=== PATIENT | female | born 1960 | race Caucasian/White ===

== ENCOUNTER → 2023-10-11 | Outpatient (CLI) | payer BC, SELFPAY ==
--- NOTE | 2023-10-11 14:10 | US_ITS ---
STUDY: RENAL ULTRASOUND - COMPLETE REASON FOR EXAM: Female, 63 years old. OVERACTIVE BLADDER -- UTI TECHNIQUE: Ultrasound evaluation of the kidneys was performed with real-time and static mcgee-scale imaging. COMPARISON: None. FINDINGS: RIGHT KIDNEY: Normal location of the right kidney, which is normal in size. The right kidney measures 13.6 cm x 6.2 cm x 4.9 cm. There is a normal cortex of the right kidney. The renal cortex measures 1.7 cm. There is no right renal mass or cyst. There are no right renal calculi. There is mild hydronephrosis of the right kidney. DISTAL RIGHT URETER: There is non-visualization of the distal right ureter. There is no demonstrated right ureterovesical junction calculus. There is a visualized right ureteral jet. LEFT KIDNEY: Normal location of the left kidney, which is normal in size. The left kidney measures 12.2 cm x 5.9 cm by 5.8 cm. There is a normal cortex of the left kidney. The renal cortex measures 1.9 cm. There is no left renal mass or cyst. There are no left renal calculi. There is moderate hydronephrosis of the left kidney. DISTAL LEFT URETER: There is non-visualization of the distal left ureter. There is no demonstrated left ureterovesical junction calculus. There is a visualized left ureteral jet. BLADDER: The distended urinary bladder has a volume of 479 ml. The empty urinary bladder has a volume of 353 ml. There is a normal wall thickness of the distended urinary bladder. There is no demonstrated mass within the urinary bladder. There are no demonstrated bladder calculi. US/Kidney and Bladder IMPRESSION: Mild right hydronephrosis. Moderate left hydronephrosis. Large post void residual. Electronically Signed: Bereket Navas MD at 13:52 EST ,
== END | disposition home or self-care (01) ==
LOC: US 14:08
PROVIDERS: Referring Provider Urology; Visit Provider Urology
DX: N39.0 Urinary tract infection, site not specified (principal); N95.2 Postmenopausal atrophic vaginitis; R35.1 Nocturia; N32.81 Overactive bladder; K59.00 Constipation, unspecified
CPT/HCPCS: 76770

== ENCOUNTER → 2023-10-16 | Outpatient (CLI) | payer BC, SELFPAY ==
--- NOTE | 2023-10-16 | CYSPIN_PTH ---
PATHOLOGY RESULTS PATIENT: JORDY ANN LOC: [facility] U#:[id number] AGE/SX: 63/F ROOM: RE10/16/[address]: Dr. Nancy Huynh MD : 1960 BED: DIS: 10/16/2023 SPEC #: [id number] RECD: 10/17/23 08:49 STATUS: RAFA REMick #: [id number] ANNA: 10/16/23 00:[address]: Nancy Huynh DEPT: CYTOLOGY RECD BY: Baldo Anaya ENTERED: 10/17/23 08:50 SP TYPE: CYSPIN FL Tissues: Urine Procedures: Pap Stain (control) Special Stain Group II Cytospin Fluid HEADER OPERATION: Not noted PRE-OP DIAGNOSIS: Gross hematuria TISSUE SUBMITTED: Urine for cytology DIAGNOSIS CYTOLOGY Urine for cytology (cytospin): Negative for high-grade urothelial carcinoma (NHGUC), Emmy System Category II. Bacterial colonies. Crystalline debris. See comment. AM:rg 10/17/2023 COMMENT The specimen primarily consists of squamous epithelial cells. Clinical correlation is suggested. The Emmy System for urine cytology diagnostic categorization was used in the evaluation of this case. CYTOLOGY STUDY Slides are reviewed. CYTOLOGY GROSS Received is 40 ml of dark gold cloudy fluid labeled with the patient's name and and designated per the requisition as urine. Submitted for cytology preparation. / perla 10/17/2023 TC:5 CPT: 10972
--- OUTSIDE RECORDS SUMMARY | 2023-10-16 11:04 | XMS RPT_ITS | CCD ---
Author Name Unknown Address [facility] [address] [place] [address] Organization [facility] Care Team Providers Care Furniture Reproducer Name Role Phone TERA RYAN Primary Care Unavailable BRYNN PRUETT Admitting Unavailable BRYNN PRUETT Attending Unavailable BRYNN PRUETT Consulting Unavailpatience CHENEY, PHYSICIAN Attending Unavailable LENNOX LIM Admitting Unavailable LENNOX LIM Attending Unavailable CONNOR NETWORK PRICING CONSULTANT, TERA Consulting Yared RYAN NETWORK PRICING CONSULTANT~[id number], CONNOR HALEY Primary Care Unavailable CONNOR OLIVO, TERA Consulting Unavailable JULES OREILLY CRNA Consulting Unavail darryl AGUILA MD, ~[id number] ALBERT Morgan Admitting Yared AGUILA MD, ~[id number] ALBERT Morgan Attending Unavailable CONNOR OLIVO~[id number], CONNOR HALEY Primary Care Unavailable JULES OREILLY CRNA Consulting Tomas AGUILA MD, DR ALBERT Morgan Consulting Ana AGUILA MD, DR ALBERT Morgan Consulting Ana RYAN NETWORK PRICING CONSULTANT, TERA Consulting Unavailable CONNOR OLIVO, TERA Consulting Unavailable Allergies Allergy Classification Reported Allergen(s) Allergy Type Date of Onset Reaction(s) Facility (3 sources) Sulfonamides (Antibiotic); Translations: [SULFA (SULFONAMIDE ANTIBIOTICS)] Propensity to adverse reactions to drug (disorder) 2 [facility] Repository Problems Problem Classification Problem Date Documented Date Episodic/Chronic Diabetes mellitus without complication (1 source) Type 2 diabetes mellitus without complications; Translations: [TYPE 2 DM WITHOUT COMPLICATIONS] Onset: 10-06-2023 Chronic 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; Translations: [OTH SPEC CONGEN MALFORM INTESTINE] Onset: 10-06-2023 Chronic Other and unspecified benign neoplasm (1 source) Benign neoplasm of cecum; Translations: [BENIGN NEOPLASM OF CECUM] Onset: 10-06-2023 Episodic Other and unspecified benign neoplasm (1 source) Benign neoplasm of transverse colon; Translations: [BENIGN NEOPLASM OF TRANSVERSE COLON] Onset: 10-06-2023 Episodic Other and unspecified benign neoplasm (1 source) Benign neoplasm of colon, unspecified; Translations: [BENIGN NEOPLASM COLON UNSPECIFIED] Onset: 10-06-2023 Episodic Other screening for suspected conditions (not mental disorders or infectious disease) (3 sources) Encounter for screening for malignant neoplasm of colon; Translations: [ENC SCREEN MALIG NEOPLASM COLON] Onset: 10-03-2023 Episodic Results Test Name Value Interpretation Reference Range Facil ity Encounters Encounter Date Encounter Type Care Provider Facility Start: 10-06-2023 Encounter for preprocedural laboratory examination ~[phone] ALBERT AGUILA MD [facility] Start: 10-03-2023 End: 10-03-2023 ambulatory JULES S NOMANSHARON KRISTINE Facility:[facility] Start: 09-12-2023 ambulatory LENNOX LIM Facility: [facility] Start: 09-13-2021 End: 09-14-2021 ambulatory [facility] Start: 01-18-2018 ambulatory PHYSICIAN NO [facility] Payers Date Payer Category Payer Unknown [id number] [id number] 1960 Unknown [id number] 1960 Unknown [id number] 1960 Unknown [id number] 1959 Unknown [id number] Unknown [id number] Unknown [id number] Summary Purpose Family History No Family History Records FoundNo Family History Records FoundNo Family History Records FoundNo Family History Records Found Advance Directives No Advanced Directives Records FoundNo Advanced Directives Records FoundNo Advanced Directives Records FoundNo Advanced Directives Records Found Additional Source Comments INFORMATION SOURCE (unrecogn ized section and content) DATE CREATED AUTHOR AUTHOR'S ORGANIZ ATION 10/22/2021 [facility] DATE CREATED AUTHOR AUTHOR'S ORGANIZ ATION 10/12/2023 [facility] DATE CREATED AUTHOR AUTHOR'S ORGANIZ ATION [facility] FOR RECORDS PERTAINING TO PATIENTS WHO ARE OR HAVE BEEN ENROLLED IN A CHEMICAL DEPENDENCY/SUBSTANCEABUSE PROGRAM, SOME INFORMATION MAY BE OMITTED. This clinical summary was aggregated from multiple sources. Caution should be exercised in using it in the provision of clinical care. This summary normalizes information from multiple sources, and as a consequence, information in this document may materially change the coding, format and clinical context of patient data. In addition, data may be omitted in some cases. CLINICAL DECISIONS SHOULD BE BASED ON THE PRIMARY CLINICAL RECORDS. [facility] [employer] [facility]. provides no warranty or guarantee of the accuracy or completeness of information in this document.
[2023-10-16 12:52] LABS: Hematocrit 43.7 % (37-47); Hemoglobin 14.8 g/dL (12.0-15.0); Mean Corp Hgb Conc 33.9 g/dL (32-36); Mean Corpuscular Volume 94.4 fL (81-99); Mean Platelet Vol. 10.1 fl (6.2-12.0); Platelet Count 226 K/mm3 (150-450); RBC Distribution Width SD 41.6 fl (35.1-43.9); Red Blood Count 4.63 M/mm3 (4.2-5.4); White Blood Count 5.7 K/mm3 (4.4-11.0)
[2023-10-16 13:29] LABS: Anion Gap 4 (5-15); BUN 13 mg/dL (7-18); BUN/Creat Ratio 19.4 RATIO (10-20); Chloride 109 mmol/L (98-107); Creatinine, Serum 0.67 mg/dL (0.55-1.02); EST Glomerular Filtration Rate 95 mL/min (>60); Est Glom Filt Rate - Afr Amer 115 mL/min (>60); Glucose 104 mg/dL (74-106); Potassium 3.9 mmol/L (3.5-5.1); Sodium Level 139 mmol/L (136-145)
[2023-10-16 17:01] LABS: Cytology, Body Fluid / CSF SEE PATHOLOGY REPORT
== END | disposition home or self-care (01) ==
PROVIDERS: Referring Provider Urology; Visit Provider Urology
DX: R31.0 Gross hematuria (principal); N39.0 Urinary tract infection, site not specified; N28.81 Hypertrophy of kidney
CPT/HCPCS: 36415; 80048; 85027; 88108; 88313

== ENCOUNTER → 2023-11-06 | Outpatient (CLI) | payer BC, SELFPAY ==
--- NOTE | 2023-11-06 18:19 | CT_ITS ---
STUDY: CT ABDOMEN AND PELVIS WITH AND WITHOUT CONTRAST REASON FOR EXAM: Female, 63 years old. UTI/BLADDER MASS. Bilateral hydronephrosis. RADIATION DOSAGE (If Supplied By Facility): CTDIvol = ( 22.38 ) mGy, DLP = ( 3675.15 ) mGycm TECHNIQUE: Transaxial images were obtained from the dome of the diaphragm to the symphysis pubis without oral contrast. IV 100mL Isovue-370 was administered. Sagittal and coronal images were reconstructed. Individualized dose optimization techniques were used for this CT. COMPARISON: None. FINDINGS: The visualized lung bases are unremarkable. The visualized portions of the heart are within normal limits. Normal liver. Normal gallbladder and extrahepatic biliary system. There are multiple benign calcified granulomata of the spleen. Normal pancreas. Normal bilateral adrenal glands. Normal right kidney. Is a moderate degree of left hydronephrosis and left hydroureter down to the insertion at the left ureterovesical junction. The distal portion of the left ureter is dilated. No obstructive uropathy is seen. Normal visualized stomach. Normal small intestine. There are scattered colonic diverticula consistent with diverticulosis. The appendix is visualized and appears normal. Normal abdominal aorta. Normal inferior vena cava. Normal retroperitoneum. Normal urinary bladder. There is endometrial thickening for the patient''s age. Normal abdominal wall. Normal osseous structures. CT/CT Abd/Pelvis W/WO Contrast IMPRESSION: Moderate degree of left hydronephrosis and left hydroureter down to the ureterovesical junction on the left side. No obstructive uropathy is seen. Electronically Signed: Bereket Navas MD at 9:53 EDT ,
== END | disposition home or self-care (01) ==
LOC: CT 18:17
PROVIDERS: Visit Provider Urology
DX: N13.30 Unspecified hydronephrosis (principal); N32.89 Other specified disorders of bladder; N39.0 Urinary tract infection, site not specified
CPT/HCPCS: 74178; Q9967

== ENCOUNTER 2023-11-16 10:51 | Day surgery (SDC) | payer BC, SELFPAY ==
--- NOTE | 2023-11-16 | FLU_PTH ---
PATIENT: JORDY ANN [place] [facility] [id number] AGE/SX: 63/F ROOM: RE11/16/[address]: Dr. Nancy Huynh MD : 1960 BED: DIS: 11/16/2023 SPEC #: [id number] RECD: 11/17/23 09:29 STATUS: RAFA WOODWARD #: [id number] ANNA: 11/16/23 00:[address]: Nancy Huynh DEPT: CYTOLOGY RECD BY: Baldo Anaya Tissues: Urethra, NOS Procedures: Special Stain Group II Surgery Specimen Level IV Cytospin Fluid HEADER OPERATION: Cysto, Biopsy bladder mass, Fulg, Left Retrograde pyelogram PRE-OP DIAGNOSIS: UTI, Bladder mass, Hydronephrosis TISSUE SUBMITTED: Left ureteral washings DIAGNOSIS CYTOLOGY Left ureteral washings fluid (cytospin and cellblock): Negative for high grade urothelial carcinoma (FLGUC), Emmy System Category II. See comment. SJ/mr 11/20/23 COMMENT Cluster of benign urothelial cells are noted. Please make reference to additional specimen ([id number]) bladder biopsy. CYTOLOGY STUDY Slides are reviewed. CYTOLOGY GROSS Received is 10 ml of pinkish-yellow cloudy fluid labeled with the patient's name and and designated per the requisition as Left ureteral washings. Submitted for cytology preparation including cell block. mr 11/17/23 TC:4 CPT: 35894
--- NOTE | 2023-11-16 | BLA_PTH ---
PATIENT: JORDY ANN [place]: [facility] [place][id number] AGE/SX: 63/F ROOM: RE11/16/[address]: Dr. 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 See comment. GUTIERREZ/ 11/20/23 COMMENT Detrusor muscle is also noted in the specimen. Correlation with clinical, cystoscopic findings and appropriate follow up are necessary. MICROSCOPIC DESCRIPTION Slides are reviewed. GROSS DESCRIPTION Received in fixative is one container labeled with the patient's name and designated Bladder biopsy. The specimen consists of two irregular fragments of light garcia soft tissue that in aggregate measure 0.6 x 0.2 x 0.1 cm. The specimen is totally submitted in one cassette. GUTIERREZ/ 11/17/23 TC:3 CPT:65759
[2023-11-16 11:13] VITALS: BP 125/80; PULSE 70; RESP 16; TEMP 36.1; O2SAT 99; BMI 31.0
[2023-11-16] MEDS: Lactated Ringers 1,000 ML 15 ML IV (11:30)
[2023-11-16 11:41] LABS: Bedside Glucose 108 mg/dL (74-106)
[2023-11-16 12:29] LABS: Hemoglobin A1c 5.4 % (3.8-5.6)
[2023-11-16] MEDS: Cefazolin 2 GM in 0.9% Normal Saline (100mL Bag) 100 ML IV (12:37)
--- NOTE | 2023-11-16 13:30 | DCINST_ITS ---
Discharge Instructions Diet Discharge Diet: No restrictions Activity Discharge Activity: Return to Normal Activity Dressing / Incision Call your doctor if you observe: Fever of 101 or Higher, Inability to urinate and Inability to have a bowel movement Follow Up Care Please Follow Up With: Nancy Huynh MD When: Schedule for appointment next week. Please complete the Macrobid. Test Results: Test results from this visit will be discussed in further detail at your follow- up appointment, if applicable. Discharge Plan Admission Attending Provider: Nancy Huynh Primary Care Provider: FRAN MAHAN Discharge Orders/Prescriptions Prescriptions: New oxycodone-acetaminophen [Percocet] 5-325 mg tablet 1 tab PO Q8H PRN (Reason: pain) 3 Days Qty: 10 0RF phenazopyridine [Pyridium] 200 mg tablet 200 mg PO TID PRN PRN (Reason: Bladder Spasms) 7 Days Qty: 30 1RF Continued metformin 1,000 mg tablet 500 mg PO DAILY Ozempic 0.25 mg or 0.5 mg (2 mg/3 mL) pen injector 0.5 mg SUBCUT QWEEK Patient Comments: INJECT 0.25 mg SUBCUTANEOUSLY ONCE A WEEK ascorbic acid (vitamin C) [C-1000] 1,000 mg tablet 0.5 g PO DAILY phenazopyridine 95 mg tablet 95 mg PO DAILY Metamucil (sugar) Powder 5 tbsp PO DAILY Probiotic 10 billion cell capsule 100 mmu cells PO DAILY cephalexin 250 mg capsule 250 mg PO DAILY Patient Comments: TAKE ONE CAPSULE BY MOUTH AT BEDTIME calcium carbonate-vitamin D3 600 mg-5 mcg (200 unit) tablet 1 tab PO DAILY bupropion HCl 150 mg tablet extended release 24 hr 150 mg PO DAILY Patient Comments: TAKE ONE TABLET BY MOUTH IN THE MORNING Referrals / Follow Up: FRAN MAHAN [Other] Disposition Disposition (needs filled in before D/C Order can be placed): Home, Self Care
[2023-11-16 13:32] VITALS: BP 125/80; BP 167/90; PULSE 85; RESP 16; TEMP 37; O2SAT 94
--- NOTE | 2023-11-16 13:33 | PCM.OPRPT ---
Report of Operation Date of Procedure: 11/16/23 Pre-Operative Diagnosis: Bladder lesion, hydronephrosis Post-Operative Diagnosis: Same Surgery/Procedure Performed:: Cystoscopy with bladder biopsy and fulguration, left retrograde pyelogram, left ureteroscopy, left ureteral washings, left ureteral stent insertion Surgeon: Nancy Huynh Type of Anesthesia: General Specimen's removed: Left ureteral washings, bladder biopsy Description of Procedure: The patient is a 63-year-old female who is being evaluated for urinary tract infections and an extremely erythematous area of the posterior bladder wall was identified on cystoscopy in the office. On renal ultrasound a left hydronephrosis was identified and this was further evaluated with a CT scan finding distal ureteral narrowing on the left. She presents today for evaluation and intervention. Informed consent was obtained. The patient was taken to the operating room and placed on the operating room table. Anesthesia monitored the head, neck, airway, IV access and vital signs throughout the case. Once anesthesia was appropriately administered, the patient was prepped and draped in usual sterile fashion. The cystoscope was inserted through the urethra under direct visualization into the urinary bladder. The 1 cm lesion in the right posterior bladder wall was identified, more consistent today with an ulceration. The left ureteral orifice was identified and gently intubated with an 8 Paraguayan cone-tip catheter. Contrast was injected in retrograde fashion revealing distal narrowing and irregularity with significant ureteral dilation proximal to the narrowing which was still in the distal ureter. A 0.035 Glidewire was then passed through the orifice and seen in the renal pelvis. A semirigid ureteroscope was gently placed alongside of the Glidewire, and was able to maneuver through the narrowing with the help of a 0.025 Glidewire. Once beyond the narrowing, the ureter was very dilated as expected. There was no evidence of stone. The tissue in the narrowed area was consistent with stricture, no significant friability. Our brush biopsy is too wide for passage through the ureteroscope, so the decision was made to take washings with normal saline of this area. Approximately 10 cc of washings were sent for cytologic evaluation. At this time the ureteroscope was removed and with the use of the cystoscope, the Glidewire was backloaded and a 6 Paraguayan 24 cm JJ stent was inserted with good positioning in the renal pelvis as well as the urinary bladder. Significant amounts of contrast were seen pouring out of the ureteral stent. At this time biopsy forceps were used to sample the posterior wall ulceration. The area was then fulgurated for hemostatic control and tissue treatment. After hemostasis was obtained, the patient's bladder was emptied and the cystoscope was removed. She was awakened and taken to the recovery room in good condition. There were no complications during this procedure. Grafts/Implants Used: 6 x 24 JJ stent Complications None Admit VTE Documentation VTE Present on Admission: Yes VTE Mechan Device Prophylaxis: SCD's VTE Pharm Prophylaxis ordered?: No Reason prophylaxis not ordered:: Treatment Not Indicated
[2023-11-16 13:35] VITALS: BP 125/80; BP 159/84; PULSE 81; RESP 16; O2SAT 95
[2023-11-16 13:40] VITALS: BP 125/80; BP 160/80; PULSE 80; RESP 16; TEMP 36.4; O2SAT 95
[2023-11-16] MEDS: Ketorolac 15 MG/ML Vial IV (13:54)
[2023-11-16 14:25] VITALS: BP 125/80
[2023-11-21 12:26] LABS: Cytology, Body Fluid / CSF SEE PATHOLOGY REPORT
== END 2023-11-16 14:30 | disposition home or self-care (01) ==
LOC: SDC 10:54 → AC 10:58
PROVIDERS: Anesthesiology; Visit Provider Urology
PROC: 0TBB8ZX Excision of Bladder, Via Natural or Artificial Opening Endoscopic, Diagnostic (ICD-10-PCS; CPT 52250; principal; 2023-11-16 12:20)
DX: N30.10 Interstitial cystitis (chronic) without hematuria (principal); E11.9 Type 2 diabetes mellitus without complications; N13.30 Unspecified hydronephrosis; N95.2 Postmenopausal atrophic vaginitis; R35.1 Nocturia; N32.81 Overactive bladder; Z79.899 Other long term (current) drug therapy; Z79.84 Long term (current) use of oral hypoglycemic drugs; Z87.891 Personal history of nicotine dependence
CPT/HCPCS: 52354; 52332; 52224; 00910; 76000; 82962; 83036; 88108; 88305; 88313; J7120; J2405

== ENCOUNTER → 2023-11-23 | Outpatient (CLI) | payer BC, SELFPAY ==
--- NOTE | 2023-11-23 18:59 | US_ITS ---
EXAM: US RETROPERITONEAL LIMITED, RENAL CLINICAL INDICATION: LT HYDRO TECHNIQUE: Limited grayscale and color Doppler sonographic evaluation of the retroperitoneum was performed. COMPARISON: Fluoroscopic images with left stent placement November 16, 2023, ultrasound October 11, 2023 showing prominently distended urinary bladder, 479 cc calculated volume, large postvoid bladder residual 353 cc, bilateral ureteral jets. 3.2 cm tubular dilated structure in the left adnexa, moderate left caliectasis. FINDINGS: RIGHT KIDNEY: Unremarkable 4.6 cm x 4.4 cm x 4.2 cm. No hydronephrosis. Roughly 9 mm right renal pelvis. No shadowing calculus. No focal lesion. No perinephric collection is demonstrated. LEFT KIDNEY: Mild hydronephrosis. Left renal pelvis is 2.2 cm AP on transverse post void image, it was previously 2.6 cm. The calyces are visible but smaller. Stent is seen in the extrarenal portion of the right renal pelvis. No perinephric fluid. Proximal left ureter is no longer seen. There is color artifact of 5 mm and 6 mm at the lower pole of the left kidney, presumably at least 2 nonobstructing stones. The left kidney is 12.2 cm x 4.3 cm x 5.4 cm. It was previously 12.3 cm x 5.8 cm x 5.9 cm. BLADDER: 11.9 cm x 11.9 cm x 8.9 cm consistent with 383 cc initially. Normal 2 mm wall. Neither ureteral jets seen on prevoid exam. Question of mildly thickened irregular wall on the right on transverse transabdominal image, possibly thickening or adherent debris of up to 6 mm thickness. Post void exam maximum bladder diameter 4.2 cm and calculated postvoid residual 18 cc. US/Kidney and Bladder IMPRESSION: Milder left hydronephrosis. Proximal stent appears well positioned. No left perinephric fluid. Left nephrolithiasis. The large dilated 3 cm distal left ureter is no longer seen. Small post void bladder residual. Electronically Signed: Gabi Vale MD at 4:08 EDT ,
== END | disposition home or self-care (01) ==
PROVIDERS: Visit Provider Urology
DX: N95.2 Postmenopausal atrophic vaginitis (principal); N13.30 Unspecified hydronephrosis; N85.00 Endometrial hyperplasia, unspecified
CPT/HCPCS: 76770

== ENCOUNTER → 2024-01-18 | Outpatient (CLI) | payer BC, SELFPAY ==
--- NOTE | 2024-01-18 14:06 | US_ITS ---
STUDY: RENAL ULTRASOUND - COMPLETE REASON FOR EXAM: Female, 63 years old. L URETERAL STONE . Stent removed 2 weeks ago. TECHNIQUE: Ultrasound evaluation of the kidneys was performed with real-time and static mcgee-scale imaging. COMPARISON: Comparison is made with prior sonogram dated November 23, 2023. FINDINGS: RIGHT KIDNEY: Normal location of the right kidney, which is normal in size. The right kidney measures 12.3 cm x 6 cm x 4.7 cm. There is a normal cortex of the right kidney. The renal cortex measures 1.4 cm. There is no right renal mass or cyst. There are no right renal calculi. There is an extra-renal pelvis of the right kidney. There is no distention of the renal calyces. DISTAL RIGHT URETER: There is non-visualization of the distal right ureter. There is no demonstrated right ureterovesical junction calculus. There is a visualized right ureteral jet. LEFT KIDNEY: Normal location of the left kidney, which is normal in size. The left kidney measures 12.7 cm x 5.7 cm x 5.1 cm. There is a normal cortex of the left kidney. The renal cortex measures 1.1 cm. There is no left renal mass or cyst. Punctate nonobstructive calculi are seen in the left kidney. There is moderate hydronephrosis of the left kidney. DISTAL LEFT URETER: There is non-visualization of the distal left ureter. There is no demonstrated left ureterovesical junction calculus. There is a visualized left ureteral jet. BLADDER: The distended urinary bladder has a volume of 591.3 ml. The empty urinary bladder has a volume of 36.3 ml. There is a normal wall thickness of the distended urinary bladder. There is no demonstrated mass within the urinary bladder. There are no demonstrated bladder calculi. US/Kidney and Bladder IMPRESSION: Mild right hydronephrosis. Moderate right hydronephrosis. Nonobstructive calculi are seen in the left kidney. Electronically Signed: Bereket Navas MD at 15:07 EDT ,
== END | disposition home or self-care (01) ==
LOC: US 14:03
PROVIDERS: Referring Provider Urology; Visit Provider Urology
DX: N13.5 Crossing vessel and stricture of ureter without hydronephrosis (principal)
CPT/HCPCS: 76770